=== PATIENT | female | born 1970 | race Caucasian/White ===

== ENCOUNTER → 2019-09-20 13:02 | Outpatient (BNVA) | payer BC, SELFPAY | PROVIDERS: Family Provider Nurse Practitioner Family; PCP Family Medicine; Visit Provider Nurse Practitioner Family | DX: R53.83 Other fatigue (principal); M79.7 Fibromyalgia; F41.9 Anxiety disorder, unspecified; F32.9 Major depressive disorder, single episode, unspecified | CPT/HCPCS: 82607; 84439; 84443; 84481; 85025 ==

== ENCOUNTER → 2019-10-05 15:04 | Outpatient (BNVA) | payer BC, SELFPAY | PROVIDERS: Family Provider Nurse Practitioner Family; PCP Family Medicine; Visit Provider Nurse Practitioner Family | DX: R53.83 Other fatigue (principal); M79.7 Fibromyalgia | CPT/HCPCS: 85025 ==

== ENCOUNTER 2019-10-25 08:31 | Outpatient (CLI) | payer BC, SELFPAY ==
[2019-10-25 09:19] LABS: Basophils % 0.4 %; Eosinophils # 0.2 10^3/uL (0.0-0.8); Eosinophils % 2.2 %; Hematocrit 38.5 % (37.0-47.0); Hemoglobin 13.1 g/dL (11.5-15.3); Lymphocytes # 1.7 10^3/uL (0.8-4.8); Lymphocytes % 15.9 %; Mean Corpuscular Hemoglobin 32.3 pg (28.0-34.0); Mean Corpuscular Volume 94.8 fL (81-99); Mean Platelet Volume 8.3 fL (7.4-10.4); Monocytes # 0.8 10^3/uL (0.2-0.9); Monocytes % 7.6 %; Neutrophils # 7.9 10^3/uL (1.8-7.7); Neutrophils % 73.5 %; Nucleated Red Blood Cells % 0 %; Platelet Count 350 10^3/cmm (130-400); Red Blood Count 4.06 10^6/uL (4.1-5.3); White Blood Count 10.7 10^3/uL (4.0-10.0)
--- NOTE | 2019-10-25 11:34 | ONC CON_ITS ---
Dr. Crawley New Patient Note Patient: Radha Cain Unit #: [id number]: 1970 Dicatated By: Catrachita Crawley M.D.Date of Visit: Oct 25, 2019 Onc MED New Patient/Consult Referring Physician: Dot Waite History of Present Illness: Mrs. Radha Cain, is a 49-year-old female with history of fibromyalgia, depression, chronic heavy smoking, postnasal discharge, found to have mildly elevated white blood cell during her routine lab check on 10/05/2019 her CBC showed white blood count 11.1 hemoglobin 14.2 crit 42 platelets 384,000 with a normal differential. Patient denies any recent infection patient denies any dysuria or vaginal discharge patient denies any skin rash, denies any night sweats, denies any recent fevers, denies any tick bite, denies any weight loss, denies any abdominal fullness, denies any peripheral lymphadenopathy, denies any steroids intake, denies any hormonal therapy, denies any yellowish phlegm but cough with clear phlegm due to smoking. Patient smoke about pack a day for the last 10 years. Next Patient also consume 5-6 hard liquor drinks in a week since young age.no family history of leukemia or blood disorder Past Medical History: Ms. Cain's medical history consists of anxiety, depression, fibromyalgia, irritable bowel syndrome, and vitamin d deficiency. Past Surgical History: Ms. Cain's surgical/procedural history consists of broken wrist, cholecystectomy, and tubal ligation. Medications: Cyanocobalamin 1 Capsule (of 1000 mcg) Oral q 14 days, Diclofenac Sodium 1 Tablet (of 75 mg) Tablet, enteric coated Oral b.i.d., DULoxetine HCl 1 Capsule (of 60 mg) Capsule Delayed Release Particles Oral daily, Gabapentin 1 Capsule (of 300 mg) Oral b.i.d., [id number] 1 Gel (jelly) b.i.d., Krill Oil 1 Capsule (of 350 mg) Oral daily, Melatonin 1 Tablet (of 5 mg) Oral at bedtime, Multivitamin Adult 1 Tablet Oral b.i.d., Vitamin D3 1 Capsule (of 5000 Units) Oral daily Allergies: No Known Allergies. Social History: Ms. Cain is . She is a daily smoker who has smoked 1.0 pack/day for 7 years. She is an active drinker.She consumes 1 drink/day 7 days/week. Family History: pt states she does not know her family history. Review Of Symptoms: Constitutional - Appetite is fair, diet is poor and weight has increased. No fever, chills, hot flashes, or night sweats. Energy level is poor, ENMT - Positive for sinus congestion/drainage. No mouth sores. No sore throat or difficulty swallowing, Hematologic/Lymphatic - No abnormal bruising or bleeding, Respiratory - No shortness of breath. No cough. No pleuritic pain or hemoptysis, Cardiovascular - No angina pain. No palpitations, Gastrointestinal - No nausea or vomiting. No heartburn or acid reflux. Positive for diarrhea, no constipation. No blood in the stool or black stools, Genitourinary (F) - No dysuria or hematuria. No urinary frequency. No urgency. Occasional incontinence, Musculoskeletal - Positive for joint pain, Neurologic - Positive for headaches, Psychiatric - Positive for anxiety and depression. Vital Signs: Performed on Oct 25, 2019 10:20: 2, 24.12, 1.81 sq.m, 67.00 in, 100 %, 72 /min, 18 /min, 114/80 mm(hg), 97.9 F (LOW), and 154.0 lbs (HIGH). Performance Status: 0 - Fully active, able to carry on all predisease activities without restrictions. (ECOG) Physical Examination: ENMT - No oral exudates, ulcers, masses, thrush or mucositis. Oropharynx mild erythema. Tongue normal, Hematologic/Lymphatic - No petechiae or purpura. No tender or palpable lymph nodes in the cervical, supraclavicular, axillary or inguinal area, Respiratory - Lungs are clear to auscultation without rhonchi or wheezing, Cardiovascular - Regular rate and rhythm of heart, Abdomen - Non-tender, non-distended, Good bowel sounds. No guarding or rebound tenderness. No pulsatile masses, Extremities - no edema or rash. Lab/Imaging: Most recent lab results are not available for this patient. Impression: Mild isolated leukocytosis etiology unclear but could be due to chronic inflammation/subclinical infection or chronic smoking or chronic stress or medications or myeloproliferative disorder but less likely Chronic heavy smoking, 1 pack per day for more than 10 years Fibromyalgia, Mild chronic off and on cough due to smoking Depression/adjustment disorder on antidepressant Chronic fatigue Plan: Discussed with patient regarding her labs from today white blood count 10.7 normal being 4-10,000, hemoglobin 13.1 crit 38.5 platelets 350,000 with a normal differential Clinically, patient doing well with no sign of acute infection but chronic postnasal discharge and mild chronic bronchitis due to heavy smoking. Signs symptom suggestive of depression but patient denies suicidal ideation, now on antidepressant. And also complaining of chronic fatigue which could be due to depression/stress or like gabapentin or antidepressant. As far as mild leukocytosis concern most likely due to chronic inflammation like bronchitis due to smoking or mild sinusitis and other possibility could be chronic stress but malignant myeloproliferative disorder is less likely but cannot be ruled out entirely. At this point patient was advised to quit smoking for 2 weeks and do saline gargles and steam inhalation to improve sinus/pulmonary health and inflammation and repeat CBC with differential and peripheral blood smear in 2 weeks and if there is resolution of mild isolated leukocytosis then, etiology of mild isolated leukocytosis could be chronic smoking itself or related chronic bronchitis/sinusitis. Patient was advised to quit smoking and was offered any assistance she may need. On the other hand if she has a persistent leukocytosis then we will consider holding blood flow cytometry to rule out malignant myeloproliferative disorder.and abdominal sonogram to assess spleen size. Signed By: Catrachita Crawley M.D. <<Signature on File>>
== END 2019-10-25 08:32 | disposition home or self-care (01) ==
LOC: ONCMED 08:39
PROVIDERS: PCP Family Medicine; Visit Provider Internal Medicine Hematology & Oncology
DX: D72.829 Elevated white blood cell count, unspecified (principal); M79.7 Fibromyalgia; F17.210 Nicotine dependence, cigarettes, uncomplicated; F10.20 Alcohol dependence, uncomplicated; K58.9 Irritable bowel syndrome, unspecified; E55.9 Vitamin D deficiency, unspecified; F41.8 Other specified anxiety disorders; F43.20 Adjustment disorder, unspecified; R53.82 Chronic fatigue, unspecified; Z79.899 Other long term (current) drug therapy
CPT/HCPCS: 85025; 99205